=== PATIENT | female | born 1950 | race Hispanic/Latino ===

== ENCOUNTER 2019-09-24 09:25 | Observation (INO) | payer MEDICARE, OTHER ==
[~2019-09-24] VITALS: Ht 144.8 cm; Wt 71.3 kg
[2019-09-24] VITALS (8 sets, daily range): BP systolic 106–127; BP diastolic 52–62
--- NOTE | 2019-09-24 09:28 | Emergency Department Note ---
History of Present Illnes History of Present Illness History of Present Illness This is a 68 year old female, c/o fever of 104 at home and disorientation per family pt ams at home pt presents as a&o x 3 during triage denies sob/cp/muscle aches/chills/n/v/d denies ever being tested for covid never smoked denies etoh, given cold rags at home for fever no meds. She was well yesterday Arrival Mode: Car Resp Therapist Required: No (daughter in the room to help) Radiation: Reports non-radiation Severity: moderate Onset quality: gradual Duration (how long): hour(s) Progression: waxing and waning Relieving factors: none Exacerbating factors: none Associated symptoms: Reports denies other symptoms, Reports other Treatments prior to arrival: none Past Medical/Family History Physician Review I have reviewed the patient's past medical and family history. Any updates have been documented here. Past Medical History Recent Fever: No Past Medical History: None, TIA Other Surgery: bone surgeries Social History Smoking Cessation: Never Smoker Counseling Performed: No Alcohol Use: None Any Illegal Drug Use: No TB Exposure/Symptoms: No Physically hurt or threatened: No Family History Family history of heart diseas: No Other Any Pre-Existing Lines (PICC,: No Review of Systems Review of Systems Constitutional: Reports chills, Reports fever, Reports malaise EENTM: Reports no symptoms Cardiovascular: Reports no symptoms Respiratory: Reports no symptoms Gastrointestinal: Reports no symptoms Genitourinary: Reports no symptoms Musculoskeletal: Reports no symptoms Integumentary: Reports no symptoms Neurological: Reports as per HPI Psychological: Reports no symptoms Endocrine: Reports no symptoms Hematological/Lymphatic: Reports no symptoms Physical Exam Related Data Allergies: Coded Allergies: No Known Allergies (Unverified , 09/24/19) Vital signs reviewed: Yes (fever, tachy) Physical Exam CONSTITUTIONAL Constitutional: Present well-developed, Present well-nourished HENT HENT: Present normocephalic, Present atraumatic, Present oropharynx clear/moist, Present nose normal HENT L/R: Present left ext ear normal, Present right ext ear normal EYES Eyes: Reports PERRL, Reports conjunctivae normal NECK Neck: Present ROM normal PULMONARY Pulmonary: Present effort normal, Present breath sounds normal CARDIOVASCULAR Cardiovascular: Present heart sounds normal, Present capillary refill normal, Present normal rate, Present tachycardia GASTROINTESTINAL Abdominal: Present soft, Present nontender, Present bowel sounds normal GENITOURINARY Genitourinary: Present exam deferred SKIN Skin: Present warm, Present dry MUSCULOSKELETAL Musculoskeletal: Present ROM normal NEUROLOGICAL Neurological: Present alert, Present oriented x 3, Present no gross motor or sensory deficits PSYCHOLOGICAL Psychological: Present mood/affect normal, Present judgement normal Results Laboratory Lab results reviewed: Yes Laboratory comments WBC 13, lactic acid 2.2 c/w sepsis, Imaging Imaging results reviewed: Yes Impressions chest X ray left sided pna Diagnostics Tests Diagnostic test(s) reviewed: Yes Procedures 12 Lead ECG Interpretation ECG Interpretation : ECG: ECG 1 Resp Therapist: Interpreted by ED physician Date: Sep 24, 2019 Time: 09:42 Prior ECG tracings: reviewed Rhythm: sinus tachycardia Rate: tachycardia QRS axis: normal Q waves: I, aVR Clinical Impression: abnormal ECG Assessment & Plan Medical Decision Making MDM fever sepsis covid Reassessment Reassessment time: 10:59 Reassessment doing better AAOx3 Assessment & Plan Final Impression: (1) Sepsis (2) Pneumonia (3) Fever due to infection Depart Disposition: ADMITTED Medications in the ED IV Rocephin, IV Pepcid IV fluid. Physician Attestation Provider Attestation pt is septic with pna, will need to be admitted for IV fluid and abx. case discussed, with TAI Lopez MD Sep 24, 2019 09:28
[2019-09-24] MEDS ORDERED: CEFTRIAXONE SOD 1 GM VIAL IV ONE ×2 (09:30→10:00)
[2019-09-24] MEDS ORDERED: SODIUM CHLORIDE 0.9% 1000ML 1,000 ML IV STA (09:30)
[2019-09-24] MEDS ORDERED: ACETAMINOPHEN 325 MG TAB PO STA (09:30)
[2019-09-24] MEDS ORDERED: CEFTRIAXONE SOD 1 GM VIAL ONE (09:53)
[2019-09-24] MEDS ORDERED: CEFTRIAXONE SOD 1 GM/NS 50 ML 50 ML IV ONE (10:15)
[2019-09-24 10:16] LABS: BASOPHILS % 0.2 % (0.0-1.0); EOSINOPHILS % 0.1 % (0.0-6.0); HEMATOCRIT 37.9 % (34.2-44.1); HEMOGLOBIN 12.5 g/dL (12.0-16.0); LYMPHOCYTES # (AUTO) 1.3 (1.0-3.2); LYMPHOCYTES % 9.6 % (18.0-39.1); MEAN CORPUSCULAR HEMOGLOBIN 27.9 pg (28-32); MEAN CORPUSCULAR VOLUME 84.6 fL (81-99); MONOCYTES # (AUTO) 0.7 (0.2-0.8); MONOCYTES % 5.1 % (4.4-11.3); NEUTROPHILS # (AUTO) 11.5 (2.1-6.9); PLATELET COUNT 243 x10e3/uL (140-360); RED BLOOD COUNT 4.48 x10e6/uL (3.6-5.1); RED CELL DISTRIBUTION WIDTH 14.4 % (11.7-14.4)
--- NOTE | 2019-09-24 10:18 | NUR ---
Note renaldo in EDM - 09/24/19 at 1407 by [facility] REPORT TO EMS. PT TO REMAIN ON OXYGEN 2 LPM PER MD. FACILITY CALLED AND GIVEN REPORT WELL. DC PAPERWORK AND LABS, XRAY COPIES ALL SENT.
--- NOTE | 2019-09-24 10:34 | NUR ---
GREEN SHEET ON CHART PER POLICY
--- NOTE | 2019-09-24 10:34 | Diagnostic Imaging Report ---
EXAMINATION: CHEST SINGLE (PORTABLE) INDICATION: Fever COMPARISON: None FINDINGS: LINES/TUBES:None LUNGS:The lungs are moderately inflated. Mild left basilar patchy opacities. PLEURA:No pleural effusion or pneumothorax. MEDIASTINUM:The cardiomediastinal silhouette appears normal in size and shape. BONES/SOFT TISSUES:No acute osseous injury. Right proximal humerus internal fixation hardware. ABDOMEN:No free air under the diaphragm. IMPRESSION: Mild left basilar patchy opacities may represent subsegmental atelectasis or superimposed early pneumonia in the proper clinical setting. Signed by: Rhonda Kingston MD on 09/24/2019 10:31 AM
[2019-09-24 10:37] LABS: ALANINE AMINOTRANSFERASE 23 IU/L (0-55); ALKALINE PHOSPHATASE 89 IU/L (40-150); ANION GAP 15.5 mmol/L (8-16); BLOOD UREA NITROGEN 15 mg/dL (7-26); BUN/CREATININE RATIO 16 (6-25); CALCIUM 9.3 mg/dL (8.4-10.2); CARBON DIOXIDE 24 mmol/L (22-29); CHLORIDE 104 mmol/L (98-107); CREATINE KINASE 90 IU/L (29-168); CREATININE, SERUM 0.92 mg/dL (0.57-1.11); EST GLOMERULAR FILTRATION RATE > 60 ML/MIN (60-); GLUCOSE 193 mg/dL (74-118); POTASSIUM 3.5 mmol/L (3.5-5.1); SODIUM 140 mmol/L (136-145)
[2019-09-24] MEDS ORDERED: ACETAMINOPHEN 325 MG TAB PO PRN (11:00)
[2019-09-24] MEDS ORDERED: ZOLPIDEM TARTRATE 5 MG TAB PO PRN (11:00)
[2019-09-24] MEDS ORDERED: AZITHROMYCIN 500MG/SOD CHL 0.9% 250ML BAG IV SCH (11:00)
[2019-09-24] MEDS ORDERED: DIPHENHYDRAMINE HCL INJ 50 MG/ML VIAL IV PRN (11:00)
[2019-09-24] MEDS ORDERED: ONDANSETRON HCL INJ 2MG/ML 2ML 2 MG/ML VIAL IV PRN (11:00)
[2019-09-24] MEDS ORDERED: ENALAPRIL MALEA20 MG PO (12:30)
[2019-09-24] MEDS ORDERED: NOVOLOG100 UNITS1 SQ (12:30)
[2019-09-24] MEDS ORDERED: LATANOPROST2.5 ML OU (12:30)
[2019-09-24] MEDS ORDERED: ATORVASTATIN CA40 MG PO (12:30)
[2019-09-24] MEDS ORDERED: DORZOLAMIDE HCL10 ML OS (12:30)
[2019-09-24] MEDS ORDERED: LANTUS 3ML100 UNITS/ SQ (12:30)
[2019-09-24] MEDS ORDERED: COMBIGAN EYE DRO5 ML OU (12:30)
[2019-09-24] MEDS ORDERED: PREDNISOLONE (12:30)
[2019-09-24] MEDS ORDERED: METFORMIN HCL500 MG PO (12:30)
[2019-09-24] MEDS ORDERED: METOPROLOL SUCC25 MG PO (12:30)
--- NOTE | 2019-09-24 12:30 | NUR ---
PATIENT HERE FROM ED WITH C/O FORGETTING THINGS AND FEVER. SHE IS IN GOOD SPIRITS AND STATES SHE IS FEELING MUCH BETTER NOW. SL TO LEFT AC INTACT. ASSESSMENT COMPLETE, IN NO APPARENT DISTRESS ABLE TO MAKE NEEDS KNOWN AMBULATED TO BR SELF AND GAVE URINE SAMPLE . DENIES ANY DISCOMFORT, COUGH OR NAUSEA/VOMITING/DIARRHEA WHEN AT HOME. SKIN INTACT
[2019-09-24 14:37] LABS: BILIRUBIN,URINE NEGATIVE (NEGATIVE); CLARITY,URINE SL CLOUDY (CLEAR); COLOR,URINE YELLOW (YELLOW); KETONES,URINE NEGATIVE (NEGATIVE); LEUKOCYTE ESTERASE ,URINE TRACE (NEGATIVE); NITRITE,URINE POSITIVE (NEGATIVE); PROTEIN,URINE DIPSTICK NEGATIVE (NEGATIVE); URINE UROBILINOGEN 0.2 mg/dL (0.2 - 1)
[2019-09-24 14:52] LABS: BACTERIA,URINE FEW /HPF; EPITHELIAL CELLS,URINE MODERATE /LPF; RBC,URINE 0-5 /HPF (0-5)
[2019-09-24] MEDS: SODIUM CHLORIDE 0.9% 1000ML 1,000 ML IV SCH ×2 (15:05→17:02)
[2019-09-24] MEDS: AZITHROMYCIN 500MG/NS 250 ML 250 ML IV SCH (15:05)
[2019-09-24] MEDS: FAMOTIDINE 20 MG TAB PO SCH (15:54)
[2019-09-24] MEDS: ENOXAPARIN SOD INJ 40 MG/0.4 ML SYR SC SCH (17:01)
[2019-09-24] MEDS ORDERED: DEXTROSE 50% SYRINGE 50 ML IV PRN ×2 (17:15→18:00)
--- NOTE | 2019-09-24 19:00 | NUR ---
Resumed care of patient. Patient awake and resting in bed, respirations even and unlabored on room air, vital signs stable, no s/s of distress at this time. Bed locked and in lowest position, side rails upx3, call light and belongings placed within reach. Patient instructed to call for assistance if needed, verbalized understanding. All safety measures in place. Will continue to monitor.
[2019-09-24] MEDS: INSULIN REGULAR, HUMAN 100 UNIT/1 ML 3ML VIAL SQ SCH (20:40)
[2019-09-24] MEDS: CEFTRIAXONE SOD 1 GM/NS 50 ML 50 ML IV SCH (20:48)
[2019-09-24] MEDS: ATORVASTATIN 40 MG TAB PO SCH (20:48)
[2019-09-24] MEDS ORDERED: CEFTRIAXONE SOD 1 GM VIAL IV SCH (21:00)
[2019-09-24] MEDS ORDERED: ATORVASTATIN 20 MG TAB PO SCH (21:00)
--- NOTE | 2019-09-24 22:15 | NUR ---
Informed by lab that patient is negative for COVID.
--- NOTE | 2019-09-24 23:00 | NUR ---
Patient reported that IV to left AC came out. New 20G IV inserted to right wrist. See EMR for details.
--- NOTE | 2019-09-24 23:13 | NUR ---
Called daughter Chrissy per patient's request to inform her of negative COVID results. Left voicemail.
[2019-09-25] VITALS (12 sets, daily range): BP systolic 101–149; BP diastolic 48–66
[2019-09-25] MEDS: SODIUM CHLORIDE 0.9% 1000ML 1,000 ML IV SCH ×3 (02:25→19:30)
[2019-09-25 05:07] LABS: BASOPHILS % 0.2 % (0.0-1.0); EOSINOPHILS % 0.1 % (0.0-6.0); HEMATOCRIT 32.1 % (34.2-44.1); HEMOGLOBIN 10.2 g/dL (12.0-16.0); LYMPHOCYTES # (AUTO) 2.3 (1.0-3.2); LYMPHOCYTES % 16.8 % (18.0-39.1); MEAN CORPUSCULAR HEMOGLOBIN 27.6 pg (28-32); MEAN CORPUSCULAR HGB CONC 31.8 g/dL (31-35); MEAN CORPUSCULAR VOLUME 86.8 fL (81-99); MONOCYTES # (AUTO) 0.8 (0.2-0.8); MONOCYTES % 5.7 % (4.4-11.3); NEUTROPHILS # (AUTO) 10.5 (2.1-6.9); NEUTROPHILS % 76.5 % (38.7-80.0); PLATELET COUNT 192 x10e3/uL (140-360)
[2019-09-25 05:32] LABS: ANION GAP 9.3 mmol/L (8-16); BLOOD UREA NITROGEN 10 mg/dL (7-26); BUN/CREATININE RATIO 13 (6-25); CARBON DIOXIDE 24 mmol/L (22-29); CHLORIDE 110 mmol/L (98-107); CREATININE, SERUM 0.75 mg/dL (0.57-1.11); EST GLOMERULAR FILTRATION RATE > 60 ML/MIN (60-); GLUCOSE 159 mg/dL (74-118); POTASSIUM 3.3 mmol/L (3.5-5.1); SODIUM 140 mmol/L (136-145)
--- NOTE | 2019-09-25 06:21 | NUR ---
Patient resting quietly in bed, respirations even and unlabored on room air, no s/s of distress at this time. All safety measures in place.
--- NOTE | 2019-09-25 06:22 | Diagnostic Imaging Report ---
EXAMINATION: CHEST SINGLE (PORTABLE) INDICATION: Fever. Pneumonia. COMPARISON: 09/24/2019. FINDINGS: LINES/TUBES:None LUNGS:The lungs are mildly hypoinflated. Mild patchy density in the lung bases, left greater than right suggestive of subsegmental atelectasis. PLEURA:No pleural effusion or pneumothorax. MEDIASTINUM:The cardiomediastinal silhouette appears normal in size and shape. BONES/SOFT TISSUES:No acute osseous injury. Right proximal humerus internal fixation hardware (plate and screw construct). ABDOMEN:No free air under the diaphragm. IMPRESSION: Patchy density in the lung bases in association with low lung volumes suggestive of atelectasis. Signed by: Dr. Gary Landa M.D. on 09/25/2019 6:19 AM
[2019-09-25] MEDS: FAMOTIDINE 20 MG TAB PO SCH ×2 (08:05→16:22)
[2019-09-25] MEDS: CEFTRIAXONE SOD 1 GM/NS 50 ML 50 ML IV SCH ×2 (08:05→21:00)
[2019-09-25] MEDS: INSULIN REGULAR, HUMAN 100 UNIT/1 ML 3ML VIAL SQ SCH ×4 (08:24→21:00)
[2019-09-25] MEDS: AZITHROMYCIN 500MG/NS 250 ML 250 ML IV SCH (10:59)
[2019-09-25] MEDS: ENOXAPARIN SOD INJ 40 MG/0.4 ML SYR SC SCH (16:22)
[2019-09-25] MEDS ORDERED: POTASSIUM CHLORIDE 20 MEQ TAB CR PO NR (16:30)
--- NOTE | 2019-09-25 17:30 | NUR ---
PATIENT IS COVID NEGATIVE. TRANSFERRED TO ROOM 205 REPORT TO [facility] ALL BELONGINGS WITH PATIENT
--- NOTE | 2019-09-25 17:40 | NUR ---
RCD PT FROM OBSERVATION BY WHEELCHAIR PT IS ALERT AND ORIENTED VITALS CHECKED PT RESTING ON BED EXPLAINE THE PT ABOUT THE FOLDER AND ITS CONTENT FILLED THE CHECK LIST BED LOW AND LOCKED CALL LIGHT IN REACH
--- NOTE | 2019-09-25 18:46 | NUR ---
PT RESTING ON BED BED SIDE REPORT GIVEN TO ONCOMING NURSE
[2019-09-25] MEDS ORDERED: LANTUS 3ML100 UNITS/ SQ (20:03)
[2019-09-25] MEDS ORDERED: INSULIN GLARGINE 100 UNITS/ML VIAL SQ SCH (21:00)
[2019-09-25] MEDS: ATORVASTATIN 40 MG TAB PO SCH (21:00)
[2019-09-26] VITALS: BP 132/67
[2019-09-26 04:00] VITALS: BP 146/75
[2019-09-26 05:37] LABS: BASOPHILS % 0.2 % (0.0-1.0); EOSINOPHILS # (AUTO) 0.1 (0.0-0.4); HEMATOCRIT 30.6 % (34.2-44.1); HEMOGLOBIN 10.5 g/dL (12.0-16.0); LYMPHOCYTES # (AUTO) 2.6 (1.0-3.2); LYMPHOCYTES % 27.3 % (18.0-39.1); MEAN CORPUSCULAR HEMOGLOBIN 30.7 pg (28-32); MEAN CORPUSCULAR HGB CONC 34.3 g/dL (31-35); MEAN CORPUSCULAR VOLUME 89.5 fL (81-99); MONOCYTES # (AUTO) 0.6 (0.2-0.8); MONOCYTES % 5.8 % (4.4-11.3); NEUTROPHILS # (AUTO) 6.2 (2.1-6.9); NEUTROPHILS % 65.3 % (38.7-80.0); PLATELET COUNT 174 x10e3/uL (140-360); RED BLOOD COUNT 3.42 x10e6/uL (3.6-5.1); RED CELL DISTRIBUTION WIDTH 15.6 % (11.7-14.4)
[2019-09-26 06:09] LABS: ANION GAP 10.7 mmol/L (8-16); BLOOD UREA NITROGEN 6 mg/dL (7-26); BUN/CREATININE RATIO 8 (6-25); CALCIUM 8.6 mg/dL (8.4-10.2); CARBON DIOXIDE 22 mmol/L (22-29); CHLORIDE 109 mmol/L (98-107); CREATININE, SERUM 0.75 mg/dL (0.57-1.11); EST GLOMERULAR FILTRATION RATE > 60 ML/MIN (60-); GLUCOSE 159 mg/dL (74-118); POTASSIUM 3.7 mmol/L (3.5-5.1); SODIUM 138 mmol/L (136-145)
--- NOTE | 2019-09-26 07:02 | Diagnostic Imaging Report ---
EXAMINATION: CHEST SINGLE (PORTABLE) INDICATION: Pneumonia. COMPARISON: 09/25/2019. FINDINGS: LINES/TUBES:None LUNGS:The lungs are mildly hypoinflated. Mild patchy density in the lung bases, left greater than right suggestive of subsegmental atelectasis. PLEURA:No pleural effusion or pneumothorax. MEDIASTINUM:The cardiomediastinal silhouette appears normal in size and shape. BONES/SOFT TISSUES:No acute osseous injury. Right proximal humerus internal fixation hardware (plate and screw construct). ABDOMEN:No free air under the diaphragm. IMPRESSION: No interval change in mild bibasilar atelectasis. Signed by: Dr. Gary Landa M.D. on 09/26/2019 6:59 AM
[2019-09-26] MEDS: SODIUM CHLORIDE 0.9% 1000ML 1,000 ML IV SCH ×2 (07:03→11:30)
--- NOTE | 2019-09-26 07:10 | NUR ---
RCD PT AT BED PT IS ALERT AND ORIENTED RESTING ON BED IV PATENT BY SALINE FLSH BED LOW AND LOCKED CALL LIGHT IN REACH
--- NOTE | 2019-09-26 07:12 | NUR ---
Day [address] observation[address] Message left for Dr[address] Gottlieb and awaiting reply. Anticipate dc later today per [employer] notes. [employer] plans dc today, home on oral antibiotics as pt is afebrile.
[2019-09-26] MEDS: FAMOTIDINE 20 MG TAB PO SCH (07:30)
[2019-09-26] MEDS: INSULIN REGULAR, HUMAN 100 UNIT/1 ML 3ML VIAL SQ SCH ×2 (07:30→11:30)
[2019-09-26 08:17] VITALS: BP 151/84
[2019-09-26 08:45] VITALS: BP 151/84
[2019-09-26] MEDS: CEFTRIAXONE SOD 1 GM/NS 50 ML 50 ML IV SCH (09:00)
[2019-09-26] MEDS: AZITHROMYCIN 500MG/NS 250 ML 250 ML IV SCH (11:30)
[2019-09-26 11:33] VITALS: BP 140/79
[2019-09-26] MEDS ORDERED: INSULIN LISPRO 100 UNIT/1 ML 3ML VIAL SQ SCH (12:00)
[2019-09-26] MEDS ORDERED: METFORMIN HCL 500 MG TAB PO SCH (12:00)
[2019-09-26] MEDS ORDERED: CEFUROXIME250 MG PO (12:47)
[2019-09-26] MEDS ORDERED: ACETAMINOPHEN325 M1 PO (12:47)
[2019-09-26] MEDS ORDERED: AZITHROMYCIN500 MG PO (12:49)
[2019-09-26] MEDS ORDERED: DORZOLAMIDE HCL (OPTH) 10 ML BOTTLE OP SCH (15:00)
--- NOTE | 2019-09-26 15:20 | NUR ---
PATIENT WENT HOME IN SAFE CONDITION WITH HER DAUGHTER
[2019-09-26] MEDS ORDERED: BRIMONIDINE/TIMOLOL (OPTH SOLN 5 ML DRPETTE OP SCH (17:00)
[2019-09-26] MEDS ORDERED: ATORVASTATIN 40 MG TAB PO SCH (21:00)
[2019-09-26] MEDS ORDERED: INSULIN GLARGINE SQ SCH (21:00)
[2019-09-26] MEDS ORDERED: NON-FORMULARY MEDICATION (Atorvastatin Calcium 40 MG) PO SCH (21:00)
[2019-09-26] MEDS ORDERED: INSULIN GLARGINE 100 UNITS/ML VIAL SQ SCH (21:00)
[2019-09-26] MEDS ORDERED: LATANOPROST(OPTH) 2.5 ML BTL OU SCH ×2 (21:00)
[2019-09-27] MEDS ORDERED: INSULIN GLARGINE 100 UNITS/ML VIAL SQ SCH (07:30)
[2019-09-27] MEDS ORDERED: NON-FORMULARY MEDICATION (Insulin Glargine (Lantus 3ML Pen) 40 UNITS) SQ SCH (07:30)
[2019-09-27] MEDS ORDERED: ENALAPRIL MALEATE 10 MG TAB PO SCH (09:00)
[2019-09-27] MEDS ORDERED: METOPROLOL SUCCINATE 25 MG TAB XL PO SCH (09:00)
[2019-09-27] MEDS ORDERED: NON-FORMULARY MEDICATION (Enalapril Maleate 20 MG) PO SCH (09:00)
--- NOTE | 2019-09-27 11:38 | Discharge Summary ---
PRIMARY CARE PHYSICIAN: Dr. Michael Allen. There were no consulting physicians on this case. CHIEF COMPLAINT: Fever that started on 09/24/2019. HISTORY OF PRESENT ILLNESS: The patient is a 68-year-old female with past medical history of type 2 diabetes mellitus, hypertension, hyperlipidemia, and glaucoma, got admitted with complaints of fever that started on 09/23. The patient denied cough, phlegm, or shortness of breath. She was not aware of getting exposed to any COVID infected person. Denies any sick contacts. Chest x-ray showed early pneumonia initially. She denied any abdominal pain, nausea, vomiting, chest pain, palpitation, or edema. The patient was kept for observation and IV antibiotics. Awaiting for COVID-19 results. PAST MEDICAL HISTORY: As per history of present illness. PAST SURGICAL HISTORY: Shoulder surgery 34 years ago and cataract surgery. FAMILY HISTORY: Brother committed suicide. Mother had diabetes mellitus. SOCIAL HISTORY: Denies any previous use of tobacco, alcohol, or illicit drugs. ALLERGIES: NO KNOWN ALLERGIES. ADMITTING DIAGNOSES: 1. Community-acquired pneumonia, POA, rule out COVID. 2. Type 2 diabetes mellitus. 3. Hypertension. 4. Hyperlipidemia. 5. Glaucoma. DISCHARGE DIAGNOSES: 1. Community-acquired pneumonia, present on admission. 2. Controlled type 2 diabetes mellitus. 3. Controlled hypertension. 4. Hyperlipidemia. 5. Glaucoma. HOSPITAL COURSE: On admission, temperature was 102.9 on 09/24/2019. WBC 13.66, hemoglobin 12.5, hematocrit 37.4, and platelets 243. Sodium 140, potassium 3.5, chloride 104, CO2 of 24, anion gap 15.5, BUN 15, creatinine 0.92, estimated GFR greater than 60, glucose 193, lactic acid 2.2, calcium 9.3, total bilirubin 0.5, AST 26, ALT 23, and alkaline phosphatase 89. Creatine kinase 90, CK-MB 0.5, troponin I 0.071. Total protein 8.2, albumin 4, lactic acid improved to 0.8 on 09/24. Urinalysis on 09/23, showed trace amount of leukocyte esterase, positive for nitrites, wbc's 6 to 10, urine bacteria few. Final urine culture showed no growth after 36 to 48 hours. Blood cultures x2 showed no growth after 48 hours. Coronavirus PCR on 09/23 was negative. Hemoglobin A1c 7.3% on 09/24. Fingerstick blood glucose levels today 230 and 237. On 09/23, chest x-ray showed mild left basilar patchy opacities may represent subsegmental atelectasis or superimposed early pneumonia in the proper clinical setting. Chest x-ray on 09/24 showed patchy density in the lung bases and associate with low lung volumes suggestive of atelectasis. Chest x-ray on 09/25, the day of discharge showed no interval change and mild bibasilar atelectasis. Telemetry today shows normal sinus rhythm with a heart rate of 90. PHYSICAL EXAMINATION: VITAL SIGNS: Temperature 98.6, T-max 98.8, heart rate 86, respirations 20, blood pressure 140/79, and oxygen saturation 100% on room air. GENERAL: In no acute distress. LUNGS: Clear to auscultation. Respiratory pattern even nonlabored. No supplemental oxygen. HEENT: Sclerae are anicteric. Oral mucosa moist, pink. Moist mucous membranes. EOMI. NECK: Supple. No JVD. CARDIOVASCULAR: Regular rate and rhythm. No murmur. ABDOMEN: Bowel sounds positive. Soft and nontender, obese. EXTREMITIES: With no pitting edema. No clubbing, cyanosis, or signs of DVT. NEUROLOGICAL: GCS 15 nonfocal. The patient to continue [employer] diet. Activity level as tolerated. The patient encouraged to use her incentive spirometry at home, 10 times every hour while awake. The patient is to follow up with her PCP, Dr. Allen in 1-2 weeks. Prescriptions provided for Ceftin 500 mg p.o. every 12 hours for 6 days to complete her 7 days, azithromycin 500 mg p.o. daily for 5 days to complete 7 days and p.r.n. Tylenol. Today, WBC 9.53, hemoglobin 10.5, hematocrit 30.6, and platelets 174. Sodium 138, potassium 3.7, chloride 109, CO2 of 22, BUN 6, creatinine 0.76, and glucose 159. Dictated by Richard Curry NP Suraj Gottlieb MD HWP/MODL /[id number]
== END 2019-09-26 15:20 | disposition home or self-care (01) ==
LOC: ER 09:35 → ERHOLD 10:50 → IMCU 13:04 → MED/SURG2 09-25 17:26
PROVIDERS: ADMIT Internal Medicine; ATTEND Internal Medicine
DX: J18.9 Pneumonia, unspecified organism (principal); E11.9 Type 2 diabetes mellitus without complications; I10 Essential (primary) hypertension; E78.5 Hyperlipidemia, unspecified; H40.9 Unspecified glaucoma; Z11.59 Encounter for screening for other viral diseases
CPT/HCPCS: 36415 ×3; 71045 ×3; 80048 ×2; 80053; 81001; 82550; 82553; 82948 ×3; 83036; 83605 ×2; 84484; 85025 ×3; 87040; 87086; 93005; 96360; 96372 ×2; 99284; G0378 ×3; J0456 ×3; J0696 ×4; J1650 ×2; J1817; J7030 ×3; U0002